=== PATIENT | female | born 1990 | race American Indian/Alaskan Native ===

== ENCOUNTER 2016-10-12 15:19 | Emergency (ER) | payer MEDICAID ==
[2016-10-12 17:20] LABS: Basophils % (Auto) 0.3 % (0.0-1.8); Eosinophils % (Auto) 1.5 % (0.0-4.3); Hematocrit 30.2 % (30.3-42.9); Hemoglobin 10.2 gm/dl (10.1-14.3); Mean Corpuscular HGB Conc 34 % (30-34); Mean Corpuscular Hemoglobin 29 pg (28-32); Mean Corpuscular Volume 86 fl (79-97); Platelet Count 256 K/mm3 (140-440); Red Blood Count 3.53 M/mm3 (3.65-5.03); White Blood Count 11.8 K/mm3 (4.5-11.0)
[2016-10-12 17:37] LABS: Bilirubin,Urine NEG (Negative); Blood,Urine MOD (Negative); Ketones,Urine NEG (Negative); Leukocyte Esterase,Urine MOD (Negative); Mucus,Urine FEW /HPF; Nitrite,Urine NEG (Negative); Protein,Urine <15 mg/dL mg/dL (Negative); Urobilinogen,Urine < 2.0 mg/dL (<2.0)
[2016-10-12 17:43] LABS: Alanine Aminotransferase 6 units/L (7-56); Albumin 3.1 g/dL (3.9-5); Alkaline Phosphatase 60 units/L (35-129); Anion Gap 16 mmol/L; Bilirubin,Total < 0.2 mg/dL (0.1-1.2); Blood Urea Nitrogen 8 mg/dL (7-17); Calcium 8.5 mg/dL (8.4-10.2); Carbon Dioxide 23 mmol/L (22-30); Chloride 99.2 mmol/L (98-107); Glucose 126 mg/dL (65-100); Potassium 3.7 mmol/L (3.6-5.0); Sodium 134 mmol/L (137-145); Total Protein 6.3 g/dL (6.3-8.2)
--- NOTE | 2016-10-12 21:48 | Ultrasound Report ---
FINAL REPORT PROCEDURE: US OB \\T\\gt; = 14 WEEKS FETUS TECHNIQUE: Multiple transabdominal sonographic images of TWIN-A were obtained. HISTORY: abd pain / back pain / "no movement" COMPARISON: No prior studies are available for comparison. FINDINGS: GENERAL: Twin: A Position: Transverse with head to maternal right Placenta-position/membranes: Posterior and grade 0, without previa . Amniotic fluid volume: Normal. MATERNAL: Uterus: Within normal limits. Cervical length: 3.6 centimeters Internal Os: Closed. Adnexa: Normal. FETUS: Heart rate and rhythm: 158 BPM, Regular . anatomic survey: The stomach, kidneys, bladder, and three-vessel umbilical cord are identified. Heart is identified. A 4 chamber image of the heart was not obtained. spine was not evaluated. Cord insertion site was normal. Cerebral anatomy is unremarkable. Placenta is posterior and grade 0 MEASUREMENTS: BPD: 3.0 centimeters corresponding to 15 weeks 4 days HC: 11.4 centimeters corresponding to 15 weeks 4 days AC: 9.8 centimeters corresponding to 15 weeks 6 days FL: 1.8 centimeters corresponding to 15 weeks 2 days Mean Gestational Age (composite criteria): 15 weeks 4 days Ratio biometry: Normal. Estimated Weight: Was not calculated grams. Estimated Due Date (earliest scan): Not available IMPRESSION: Live intrauterine twin gestation identified. Twin A gestational age corresponds to 15 weeks and 4 days and the expected date of delivery is 04/01/2017.
--- NOTE | 2016-10-12 21:56 | Ultrasound Report ---
FINAL REPORT PROCEDURE: US OB \\T\\gt; = 14 WK FETUS ADD GEST TECHNIQUE: Multiple transabdominal sonographic images of TWIN-B were obtained. HISTORY: abd pain / back pain / "no movement" COMPARISON: No prior studies are available for comparison. FINDINGS: GENERAL: Twin: B Position: Transverse with head to maternal right. Placenta-position/membranes: Posterior and grade 0, without previa . Amniotic fluid volume: Normal. MATERNAL: Uterus: Within normal limits. Cervix length: 3.6 cm. Internal Os: Closed. Adnexa: Normal. FETUS: Heart rate and rhythm: 167 BPM, Regular . anatomic survey: Stomach, kidneys, bladder, diaphragm are identified. Heart is also visualized. A 4 chamber heart was not evaluated. Three vessels are identified in the cord. Abdominal cord insertion site is normal. MEASUREMENTS: BPD: 2.9 centimeters corresponding to 15 weeks and 1 day HC: 11.3 centimeters corresponding to 15 weeks and 3 days AC: 9.4 centimeters corresponding to 15 weeks and 4 days FL: 1.8 centimeters corresponding to 15 weeks and 2 days Mean Gestational Age (composite criteria): 15 weeks and 3 days Ratio biometry: Normal. Estimated Weight: Not calculated grams. Estimated Due Date: 04/02/2017 IMPRESSION: Live intrauterine twin gestation is identified Twin B gestational age corresponds to 15 weeks and 3 days with expected date of delivery of 04/02/2017.
--- NOTE | 2016-10-12 23:18 | Emergency Department Report ---
HPI - General Chief Complaint: Abdominal Pain Time Seen by Provider: 10/12/16 23:02 - HPI HPI: Room 9 The patient is a 26-year-old female presenting with a chief complaint of lower abdominal pain. The patient states she is with twins and is approximately 15 weeks gestational age. The patient states she came to the emergency department because for the past 5 days she has had intermittent lower abdominal cramping and back pain. The patient states she also has not felt baby move approximately one week. Patient denies vaginal bleeding, nausea/ vomiting, dysuria, hematuria or fever. Patient denies any other complaints except for the above when asked Location: [see above] Duration: [see above] Quality: Cramping Severity: Moderate Modifying factors: [see above] Context: [see above] Mode of transportation: [not driving] ED Past Medical Hx - Past Medical History Hx Hypertension: Yes (with previous ) Hx Seizures: Yes - Surgical History Additional Surgical History: cyst removed right eye (child) - Family History Family history: no significant - Social History Smoking Status: Former Smoker Substance Use Type: Alcohol (rarely) - Medications Home Medications: Home Medications Medication Instructions Recorded Confirmed Last Taken Type Vit No.130/Iron/FA 1 each PO QDAY 10/12/16 10/12/16 10/12/16 08:00 History [ Tablet] ED Review of Systems ROS: Stated complaint: 4 MONTHS PREG/CANT FEEL BABY MOVING Other details as noted in HPI Comment: All other systems reviewed and negative Constitutional: denies: chills, fever Eyes: denies: eye pain, eye discharge, vision change ENT: denies: ear pain, throat pain Respiratory: denies: cough, shortness of breath, wheezing Cardiovascular: denies: chest pain, palpitations Endocrine: no symptoms reported Gastrointestinal: abdominal pain. denies: nausea, vomiting Genitourinary: denies: dysuria, hematuria Musculoskeletal: back pain Skin: denies: rash, lesions Neurological: denies: headache, weakness, paresthesias Psychiatric: denies: anxiety, depression Hematological/Lymphatic: denies: easy bleeding, easy bruising Physical Exam - Physical Exam Vital Signs: Vital Signs 10/12/16 15:55 Temperature 97.8 F Pulse Rate 92 H Respiratory 17 Rate Blood Pressure 125/77 O2 Sat by Pulse 98 Oximetry Physical Exam: GENERAL: The patient is well-developed well-nourished female lying on stretcher not appearing to be in acute distress. [] HEENT: Normocephalic. Atraumatic. Extraocular motions are intact. Patient has moist mucous membranes. NECK: Supple. Trachea midline CHEST/LUNGS: Clear to auscultation. There is no respiratory distress noted. HEART/CARDIOVASCULAR: Regular. There is no tachycardia. There is no gallop rub or murmur. ABDOMEN: Abdomen is gravid, soft and nontender. Patient has normal bowel sounds. Abdomen is gravid SKIN: There is no rash. There is no edema. There is no diaphoresis. NEURO: The patient is awake, alert, and oriented. The patient is cooperative. The patient has normal speech MUSCULOSKELETAL: There is no evidence of acute injury. ED Course Vital Signs 10/12/16 15:55 Temperature 97.8 F Pulse Rate 92 H Respiratory 17 Rate Blood Pressure 125/77 O2 Sat by Pulse 98 Oximetry ED Medical Decision Making - Lab Data Result diagrams: 10/12/16 16:44 10/12/16 16:44 Laboratory Tests 10/12/16 10/12/16 10/12/16 16:44 16:44 16:44 WBC 11.8 H RBC 3.53 L Hgb 10.2 Hct 30.2 L MCV 86 MCH 29 MCHC 34 RDW 16.0 H Plt Count 256 Lymph % (Auto) 15.4 [place] % (Auto) 4.3 Eos % (Auto) 1.5 Baso % (Auto) 0.3 Lymph # 1.8 Simpson # 0.5 Eos # 0.2 Baso # 0.0 Seg Neutrophils % 78.5 H Seg Neutrophils # 9.2 H Sodium 134 L Potassium 3.7 Chloride 99.2 Carbon Dioxide 23 Anion Gap 16 BUN 8 Creatinine 0.5 L Estimated GFR > 60 BUN/Creatinine Ratio 16.00 Glucose 126 H Calcium 8.5 Total Bilirubin < 0.2 AST 11 ALT 6 L Alkaline Phosphatase 60 Total Protein 6.3 Albumin 3.1 L Albumin/Globulin Ratio 1.0 HCG, Quant 48805 H Urine Color Urine Turbidity Urine pH Ur Specific [place] Urine Protein Urine Glucose (UA) Urine Ketones Urine Blood Urine Nitrite Urine Bilirubin Urine Urobilinogen Ur Leukocyte Esterase Urine WBC (Auto) Urine RBC (Auto) U Epithel Cells (Auto) Urine Mucus 10/12/16 Unknown WBC RBC Hgb Hct MCV MCH MCHC RDW Plt Count Lymph % (Auto) [place] % (Auto) Eos % (Auto) Baso % (Auto) Lymph # [place] # Eos # Baso # Seg Neutrophils % Seg Neutrophils # Sodium Potassium Chloride Carbon Dioxide Anion Gap BUN Creatinine Estimated GFR BUN/Creatinine Ratio Glucose Calcium Total Bilirubin AST ALT Alkaline Phosphatase Total Protein Albumin Albumin/Globulin Ratio HCG, Quant Urine Color Yellow Urine Turbidity Clear Urine pH 7.0 Ur Specific [place] 1.016 Urine Protein <15 mg/dl Urine Glucose (UA) Neg Urine Ketones Neg Urine Blood Mod Urine Nitrite Neg Urine Bilirubin Neg Urine Urobilinogen < 2.0 Ur Leukocyte Esterase Mod Urine WBC (Auto) 1.0 Urine RBC (Auto) 1.0 U Epithel Cells (Auto) 7.0 Urine Mucus Few - Radiology Data Radiology results: report reviewed (pelvic ultrasound), image reviewed (pelvic ultrasound) Pelvic ultrasound (read by radiologist)-live intrauterine twin gestation identified. When a gestational age corresponds to 15 weeks and 4 days and expected date of delivery is 04/01/2017. heart rate 158 bpm [place] twin B gestational age corresponds to 15 weeks and 3 days with expected date of delivery of 04/02/2017. heart rate 167 bpm - Differential Diagnosis demise, threatened , subchorionic hemorrhage, UTI Critical care attestation.: If time is entered above; I have spent that time in minutes in the direct care of this critically ill patient, excluding procedure time. ED Disposition Clinical Impression: Abdominal pain, Disposition: DISCHARGED TO HOME OR SELFCARE Is pt being admited?: No Does the pt Need Aspirin: No Condition: Stable Instructions: Abdominal Pain (ED) Additional Instructions: Return to the emergency department immediately should you develop worsening symptoms, fever, inability to tolerate food or liquid or any other concerns. Referrals: PRIMARY CARE, [Primary Care Provider] - 3-5 Days TREVON ABDALLA MD [Staff Physician] - [facility] (Dr. Abdalla is an BUSINESS TECHNOLOGY ANALYST. Please follow up with him to be established as a patient) Time of Disposition: 23:20
[2016-10-12 23:52] VITALS: BP 110/80
== END 2016-10-12 23:50 | disposition home or self-care (01) ==
LOC: ED 15:19
DX: O26.892 Other specified pregnancy related conditions, second trimester (principal); R10.30 Lower abdominal pain, unspecified; O16.2 Unspecified maternal hypertension, second trimester; O99.332 Smoking (tobacco) complicating pregnancy, second trimester; R56.9 Unspecified convulsions; Z3A.15 15 weeks gestation of pregnancy
CPT/HCPCS: 36415; 76805; 76810; 80053; 81001; 84702; 85025

== ENCOUNTER 2021-10-18 16:44 | Emergency (ER) | payer SELFPAY ==
[2021-10-18] MEDS ORDERED: SODIUM CHLORIDE 0.9% 1000 ML 1,000 ML IV ONE (18:21)
[2021-10-18] MEDS ORDERED: KETOROLAC 30 MG/1 ML INJ IV ONE (18:21)
[2021-10-18 18:54] LABS: Basophils % (Auto) 0.7 % (0.0-1.8); Eosinophils # (Auto) 0.2 K/mm3 (0.0-0.4); Eosinophils % (Auto) 3.5 % (0.0-4.3); Hematocrit 35.8 % (30.3-42.9); Hemoglobin 11.5 gm/dl (10.1-14.3); Mean Corpuscular HGB Conc 32 % (30-34); Mean Corpuscular Volume 82 fl (79-97); Monocytes # (Auto) 0.4 K/mm3 (0.0-0.8); Monocytes % (Auto) 6.5 % (0.0-7.3); Platelet Count 426 K/mm3 (140-440); Red Blood Count 4.34 M/mm3 (3.65-5.03); Red Cell Distribution Width 18.5 % (13.2-15.2)
[2021-10-18 19:16] LABS: Alanine Aminotransferase 11 units/L (7-56); Albumin 3.8 g/dL (3.9-5); Blood Urea Nitrogen 8 mg/dL (7-17); Hemolysis Index 5
[2021-10-18 19:28] LABS: BUN/Creatinine Ratio 13
[2021-10-18 19:34] LABS: Bacteria,Urine 1+ /HPF (Negative); Bilirubin,Urine NEG (Negative); Blood,Urine LG (Negative); Color,Urine Yellow (Yellow); Mucus,Urine FEW /HPF; Urobilinogen,Urine < 2.0 mg/dL (<2.0)
[2021-10-18 19:38] VITALS: BP 138/83
--- NOTE | 2021-10-18 20:11 | Emergency Department Report ---
ED Female HPI - General Chief complaint: Urogenital-Female Stated complaint: ABD PAIN,VOMITTING,TROUBLE URINATING Time Seen by Provider: 10/18/21 18:09 Source: patient Mode of arrival: Ambulatory Limitations: No Limitations - History of Present Illness Initial comments: This is a 31-year-old female nontoxic, well nourished in appearance, no acute signs of distress presents to the ED with c/o of dysuria, pelvic cramping, and some vaginal discharge x several days. Patient denies any vaginal bleeding, ulcers or lesions. Patient denies any flank or back pain. Patient denies any abdominal pain. Patient denies any nausea, vomiting, chest pain, shortness of breathe, fever, chills, headache, back pain, numbness, tingling, stiff neck. Patient denies any other urinary symptoms. Patient denies any allergies or PMH. MD Complaint: vaginal discharge, dysuria, pelvic pain -: days(s) Radiation: non-radiating Severity: mild Severity scale (0 -10): 3 Quality: cramping Consistency: intermittent Improves with: none Worsens with: none Associated Symptoms: vaginal discharge, dysuria. denies: vaginal bleeding, abdominal pain, nausea/vomiting, fever/chills, headaches, loss of appetite, hematuria, rash, seizure, shortness of breath, syncope, weakness - Related Data Home Medications Medication Instructions Recorded Confirmed Last Taken Vit No.130/Iron/Folic 1 each PO QDAY 10/12/16 10/18/21 10/12/16 08:00 [ Tablet] Previous Rx's Medication Instructions Recorded Last Taken Type metroNIDAZOLE [Flagyl] 500 mg PO Q12HR #14 tab 10/18/21 Unknown Rx Allergies Allergy/AdvReac Type Severity Reaction Status Date / Time No Known Allergies Allergy Verified 10/18/21 19:41 ED Review of Systems ROS: Stated complaint: ABD PAIN,VOMITTING,TROUBLE URINATING Other details as noted in HPI Comment: All other systems reviewed and negative Constitutional: denies: chills, fever Eyes: denies: eye pain, eye discharge, vision change ENT: denies: ear pain, throat pain Respiratory: denies: cough, shortness of breath, wheezing Cardiovascular: denies: chest pain, palpitations Endocrine: no symptoms reported Gastrointestinal: denies: abdominal pain, nausea, diarrhea Genitourinary: dysuria, discharge. denies: urgency, frequency, hematuria, abnormal menses, dyspareunia Musculoskeletal: denies: back pain, joint swelling, arthralgia Skin: denies: rash, lesions Neurological: denies: headache, weakness, paresthesias Psychiatric: denies: anxiety, depression Hematological/Lymphatic: denies: easy bleeding, easy bruising ED Past Medical Hx - Past Medical History Previous Medical History?: Yes Hx Hypertension: Yes (with previous ) Hx Seizures: Yes Hx Psychiatric Treatment: Yes - Surgical History Past Surgical History?: Yes Additional Surgical History: cyst removed right eye (child) - Social History Smoking Status: Never Smoker Substance Use Type: None - Medications Home Medications: Home Medications Medication Instructions Recorded Confirmed Last Taken Type Vit No.130/Iron/Folic 1 each PO QDAY 10/12/16 10/18/21 10/12/16 08:00 History [ Tablet] metroNIDAZOLE [Flagyl] 500 mg PO Q12HR #14 tab 10/18/21 Unknown Rx ED Physical Exam - General Limitations: No Limitations General appearance: alert, in no apparent distress - Head Head exam: Present: atraumatic, normocephalic - Eye Eye exam: Present: normal appearance - ENT ENT exam: Present: normal exam - Neck Neck exam: Present: normal inspection, full ROM. Absent: tenderness, meningismus, lymphadenopathy - Respiratory Respiratory exam: Present: normal lung sounds bilaterally. Absent: respiratory distress, wheezes, rales, rhonchi, stridor, chest wall tenderness, accessory muscle use, decreased breath sounds, prolonged expiratory - Cardiovascular Cardiovascular Exam: Present: regular rate, normal rhythm, normal heart sounds. Absent: bradycardia, tachycardia, irregular rhythm, systolic murmur, diastolic murmur, rubs, gallop - GI/Abdominal GI/Abdominal exam: Present: soft, normal bowel sounds. Absent: distended, tenderness, guarding, rebound, rigid - External exam: Present: normal external exam, other (Story Teller Cheryl relocation manager present during exam). Absent: erythema, swelling, lesions, lacerations, ecchymosis, bleeding Speculum exam: Present: cervical discharge, other (Story Teller Cheryl relocation manager present during exam). Absent: erythema, vaginal discharge, vaginal bleeding, foreign body, tissue, laceration Bi-manual exam: Present: normal bi-manual exam, other (Story Teller Cheryl relocation manager present during exam). Absent: cervical motion tendernes, adnexal mass, uterine enlargement, uterine tenderness - Extremities Exam Extremities exam: Present: normal inspection, full ROM, normal capillary refill. Absent: tenderness - Back Exam Back exam: Present: normal inspection, full ROM. Absent: tenderness, CVA tenderness (R), CVA tenderness (L), muscle spasm, paraspinal tenderness, vertebral tenderness, rash noted - Neurological Exam Neurological exam: Present: alert, oriented X3, normal gait - Psychiatric Psychiatric exam: Present: normal affect, normal mood - Skin Skin exam: Present: warm, dry, intact, normal color. Absent: rash ED Course Vital Signs 10/18/21 10/18/21 17:12 19:36 Temperature 98 F 98.2 F Pulse Rate 88 Respiratory 20 18 Rate Blood Pressure 141/101 138/83 [Right] O2 Sat by Pulse 99 99 Oximetry - Reevaluation(s) Reevaluation #1: 10/18/21 20:10 Patient is speaking in full sentences with no signs of distress noted. ED Medical Decision Making - Lab Data Result diagrams: 10/18/21 18:33 10/18/21 18:33 Lab Results 10/18/21 10/18/21 10/18/21 Range/Units 18:33 18:33 18:33 WBC 6.6 (4.5-11.0) K/mm3 RBC 4.34 (3.65-5.03) M/mm3 Hgb 11.5 (10.1-14.3) gm/dl Hct 35.8 (30.3-42.9) % MCV 82 (79-97) fl MCH 27 L (28-32) pg MCHC 32 (30-34) % RDW 18.5 H (13.2-15.2) % Plt Count 426 (140-440) K/mm3 Lymph % (Auto) 30.0 (13.4-35.0) % [place] % (Auto) 6.5 (0.0-7.3) % Eos % (Auto) 3.5 (0.0-4.3) % Baso % (Auto) 0.7 (0.0-1.8) % Lymph # (Auto) 2.0 (1.2-5.4) K/mm3 [place] # (Auto) 0.4 (0.0-0.8) K/mm3 Eos # (Auto) 0.2 (0.0-0.4) K/mm3 Baso # (Auto) 0.0 (0.0-0.1) K/mm3 Seg Neutrophils % 59.3 (40.0-70.0) % Seg Neutrophils # 3.9 (1.8-7.7) K/mm3 Sodium 137 (137-145) mmol/L Potassium 4.2 (3.6-5.0) mmol/L Chloride 104.8 (98-107) mmol/L Carbon Dioxide 23 (22-30) mmol/L Anion Gap 13 mmol/L BUN 8 (7-17) mg/dL Creatinine 0.6 (0.6-1.2) mg/dL Estimated GFR > 60 ml/min BUN/Creatinine Ratio 13 % Glucose 93 (65-100) mg/dL Calcium 8.0 L (8.4-10.2) mg/dL Total Bilirubin < 0.20 (0.1-1.2) mg/dL AST 17 (5-40) units/L ALT 11 (7-56) units/L Alkaline Phosphatase 78 (35-129) units/L Total Protein 7.3 (6.3-8.2) g/dL Albumin 3.8 L (3.9-5) g/dL Albumin/Globulin Ratio 1.1 % Lipase 23 (13-60) units/L HCG, Qual Negative (Negative) Urine Color (Yellow) Urine Turbidity (Clear) Urine pH (5.0-7.0) Ur Specific [place] (1.003-1.030) Urine Protein (Negative) mg/dL Urine Glucose (UA) (Negative) mg/dL Urine Ketones (Negative) mg/dL Urine Blood (Negative) Urine Nitrite (Negative) Urine Bilirubin (Negative) Urine Urobilinogen (<2.0) mg/dL Ur Leukocyte Esterase (Negative) Urine WBC (Auto) (0.0-6.0) /HPF Urine RBC (Auto) (0.0-6.0) /HPF U Epithel Cells (Auto) (0-13.0) /HPF Urine Bacteria (Auto) (Negative) /HPF Urine Mucus /HPF 10/18/21 Range/Units 18:57 WBC (4.5-11.0) K/mm3 RBC (3.65-5.03) M/mm3 Hgb (10.1-14.3) gm/dl Hct (30.3-42.9) % MCV (79-97) fl MCH (28-32) pg MCHC (30-34) % RDW (13.2-15.2) % Plt Count (140-440) K/mm3 Lymph % (Auto) (13.4-35.0) % [place] % (Auto) (0.0-7.3) % Eos % (Auto) (0.0-4.3) % Baso % (Auto) (0.0-1.8) % Lymph # (Auto) (1.2-5.4) K/mm3 [place] # (Auto) (0.0-0.8) K/mm3 Eos # (Auto) (0.0-0.4) K/mm3 Baso # (Auto) (0.0-0.1) K/mm3 Seg Neutrophils % (40.0-70.0) % Seg Neutrophils # (1.8-7.7) K/mm3 Sodium (137-145) mmol/L Potassium (3.6-5.0) mmol/L Chloride (98-107) mmol/L Carbon Dioxide (22-30) mmol/L Anion Gap mmol/L BUN (7-17) mg/dL Creatinine (0.6-1.2) mg/dL Estimated GFR ml/min BUN/Creatinine Ratio % Glucose (65-100) mg/dL Calcium (8.4-10.2) mg/dL Total Bilirubin (0.1-1.2) mg/dL AST (5-40) units/L ALT (7-56) units/L Alkaline Phosphatase (35-129) units/L Total Protein (6.3-8.2) g/dL Albumin (3.9-5) g/dL Albumin/Globulin Ratio % Lipase (13-60) units/L HCG, Qual (Negative) Urine Color Yellow (Yellow) Urine Turbidity Slightly-cloudy (Clear) Urine pH 6.0 (5.0-7.0) Ur Specific [place] 1.023 (1.003-1.030) Urine Protein 30 mg/dl (Negative) mg/dL Urine Glucose (UA) Neg (Negative) mg/dL Urine Ketones Neg (Negative) mg/dL Urine Blood Lg (Negative) Urine Nitrite Neg (Negative) Urine Bilirubin Neg (Negative) Urine Urobilinogen < 2.0 (<2.0) mg/dL Ur Leukocyte Esterase Neg (Negative) Urine WBC (Auto) 3.0 (0.0-6.0) /HPF Urine RBC (Auto) 81.0 (0.0-6.0) /HPF U Epithel Cells (Auto) 10.0 (0-13.0) /HPF Urine Bacteria (Auto) 1+ (Negative) /HPF Urine Mucus Few /HPF - Medical Decision Making This is a 31-year-old female that presents with bacterial vaginosis. Patient is stable was examined by me. There is no abdominal tenderness. Negative cervical motion tenderness. UA obtained. Wet prep obtained. Gonorrhea chlamydia swab pending. Patient was instructed to return in 3 days for GC results. Patient be treated with Flagyl at discharge. Patient was instructed to Follow-up with a primary care doctor in 3-5 days or if symptoms worsen and continue return to emergency room as soon as possible. At time of discharge, the patient does not seem toxic or ill in appearance. No acute signs of distress noted. Patient agrees to discharge treatment plan of care. No further questions noted by the patient. Critical care attestation.: If time is entered above; I have spent that time in minutes in the direct care of this critically ill patient, excluding procedure time. ED Disposition Clinical Impression: Bacterial vaginosis Disposition: 01 HOME / SELF CARE / HOMELESS Is pt being admited?: No Does the pt Need Aspirin: No Condition: Stable Instructions: Bacterial Vaginosis (ED), Bacterial Vaginosis, [id number] Additional Instructions: Follow-up with a primary care doctor in 3-5 days or if symptoms worsen and continue return to emergency room as soon as possible. Prescriptions: metroNIDAZOLE [Flagyl] 500 mg PO Q12HR #14 tab Referrals: KACY OREILLY MD [Primary Care Provider] - 3-5 Days WILVER VIVAR MD [Staff Physician] - 3-5 Days Forms: Work/School Release Form(ED) Time of Disposition: 20:29
== END 2021-10-18 20:35 | disposition home or self-care (01) ==
LOC: ED 16:44
DX: R30.0 Dysuria (principal); I10 Essential (primary) hypertension; N77.1 Vaginitis, vulvitis and vulvovaginitis in diseases classified elsewhere
CPT/HCPCS: 36415; 80053; 81001; 83690; 84703; 85025; 87210; 87591; 99284; J1885; J7030; Q0162

== ENCOUNTER 2021-11-02 14:27 | Emergency (ER) | payer MEDICAID ==
[2021-11-02] MEDS ORDERED: DEXAMETHASONE 4 MG TAB PO ONE (15:19)
[2021-11-02] MEDS ORDERED: MORPHINE 4 MG/1 ML INJ IM ONE (15:19)
[2021-11-02] MEDS ORDERED: KETOROLAC 10 MG TAB PO ONE (15:19)
[2021-11-02] MEDS ORDERED: ONDANSETRON 4 MG ODT TAB PO ONE (15:19)
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
[2021-11-02 16:31] VITALS: BP 152/116
== END 2021-11-02 16:32 | disposition home or self-care (01) ==
LOC: ED 14:27
DX: S00.83XA Contusion of other part of head, initial encounter (principal); R51.9 Headache, unspecified; R56.9 Unspecified convulsions; Z98.890 Other specified postprocedural states; Y08.89XA Assault by other specified means, initial encounter; Y93.89 Activity, other specified; Y92.89 Other specified places as the place of occurrence of the external cause; Y99.8 Other external cause status; Z79.899 Other long term (current) drug therapy
CPT/HCPCS: 70486; 96372; 99283; J2270; J8540; J3490; Q0162